=== PATIENT | male | born 1980 | race Caucasian/White ===

== ENCOUNTER 2018-01-27 09:23 | Inpatient (IN) | payer OTHER ==
[~2018-01-27] VITALS: Ht 185.4 cm; Wt 74.0 kg
[~2018-01-27 09:23] MED LIST: AVELOX400 MG PO; CEPHALEXIN500 M1 PO; COLACE100 MG PO; DEXILANT60 MG PO; DILAUDID2 MG PO; INDOMETHACIN50 MG PO; LOVENOX40 MG/0.4 SC; OMEPRAZOLE40 M1 PO; PERCOCET 5/31 TABLET PO; TEGRETOL200 MG PO
[2018-01-27 10:12] LABS: BASOPHIL (%) 0.5 % (0-1); EOSINOPHIL (%) 1.3 % (0-5); EOSINOPHIL COUNT 0.1 K/uL (0-0.3); HEMATOCRIT 43.4 % (38.0-50.0); HEMOGLOBIN 15.5 G/DL (12.5-16.6); IMMATURE GRANULOCYTE (%) 0.1 % (0.0-0.7); LYMPHOCYTE (%) 37.7 % (15-42); MCH 29.2 PG (29.0-34.0); MCHC 35.7 G/DL (30.0-36.0); MCV 81.7 FL (86-99); MONOCYTE COUNT 0.6 K/uL (0-0.8); NEUTROPHIL (%) 53.4 % (45-76); NEUTROPHIL COUNT 4.3 K/uL (1.8-6.4); PLATELET COUNT 216 K/uL (156-360); RBC DIS.WIDTH-CV 12.1 % (11.8-14.6); RBC DIS.WIDTH-SD 35.5 % (39-53); RED BLOOD COUNT 5.31 M/uL (4.00-5.50)
[2018-01-27] MEDS ORDERED: GABAPENTIN300 MG PO (10:20)
[2018-01-27 10:23] LABS: CHLORIDE 108 mEq/L (99-109); POTASSIUM 3.9 mEq/L (3.7-5.4); SODIUM 142 mEq/L (136-147)
[2018-01-27 10:24] LABS: MAGNESIUM 2.1 mg/dL (1.3-2.7)
[2018-01-27 10:25] LABS: GLUCOSE 100 mg/dL (70-99)
[2018-01-27] MEDS ORDERED: DAILY VALUE1 EACH PO (10:25)
[2018-01-27] MEDS ORDERED: PROBIOTIC1 EAC1 PO (10:25)
[2018-01-27 10:29] LABS: CREATININE 0.7 mg/dL (0.6-1.3); GFR ESTIMATE (CALCULATED) > 59 mL/min/ (58.99-99999)
[2018-01-27 10:30] LABS: UREA NITROGEN (BUN) 13 mg/dL (9-23)
[2018-01-27 10:33] LABS: TROP-I INTERPRETATION NEGATIVE; TROPONIN-I < 0.01 ng/mL (0.0-0.30)
[2018-01-27 11:10] LABS: THYROTROPIN (TSH) 1.8 MIU/L (0.4-5.5)
[2018-01-27 14:39] LABS: TROP-I INTERPRETATION NEGATIVE; TROPONIN-I < 0.01 ng/mL (0.0-0.30)
[2018-01-27 15:57] VITALS: BP 112/64
[2018-01-27 20:29] VITALS: BP 128/71
[2018-01-27 22:24] VITALS: BP 129/59
[2018-01-28 03:20] VITALS: BP 113/67
[2018-01-28 05:23] LABS: HEMATOCRIT 42.4 % (38.0-50.0); HEMOGLOBIN 14.3 G/DL (12.5-16.6); MCH 28.1 PG (29.0-34.0); MCHC 33.7 G/DL (30.0-36.0); MCV 83.3 FL (86-99); PLATELET COUNT 215 K/uL (156-360); RBC DIS.WIDTH-CV 12.3 % (11.8-14.6); RBC DIS.WIDTH-SD 37.3 % (39-53); RED BLOOD COUNT 5.09 M/uL (4.00-5.50); WHITE BLOOD COUNT 6.4 K/uL (4.1-10.2)
[2018-01-28 06:04] LABS: CHLORIDE 103 MEQ/L (99-109); CREATININE 0.9 MG/DL (0.6-1.3); GFR ESTIMATE (CALCULATED) > 59 mL/min/ (58.99-99999); GLUCOSE 93 mg/dL (70-99); POTASSIUM 4.1 MEQ/L (3.7-5.4); SODIUM 141 MEQ/L (136-147); UREA NITROGEN (BUN) 14 mg/dL (9-23)
[2018-01-28 08:21] VITALS: BP 116/78
[2018-01-28] MEDS ORDERED: TRAMADOL HCL50 MG PO (12:55)
== END 2018-01-28 14:32 | disposition home or self-care (01) | DRG 309 ==
LOC: EME 09:23 → EDOF 11:01 → ENRESERV 11:02 → 4EAST 15:27
PROVIDERS: Emergency Medicine; Internal Medicine
DX: I48.0 Paroxysmal atrial fibrillation (principal); G62.9 Polyneuropathy, unspecified; D68.51 Activated protein C resistance
CPT/HCPCS: 71045; 80048; 83735; 83880; 84443; 84484; 85025; 85027; 93005; 99281; 99285; J2405